=== PATIENT | female | born 1970 | race Two or more races ===

== ENCOUNTER 2017-05-05 13:51 | Emergency (ER) | payer OTHER ==
[~2017-05-05] VITALS: Ht 165.1 cm; Wt 65.8 kg
[2017-05-05] MEDS ORDERED: VENTOLIN HFA18 GM (14:05)
== END 2017-05-05 18:51 | disposition home or self-care (01) ==
LOC: ER 13:51
DX: J06.9 Acute upper respiratory infection, unspecified (principal); J11.1 Influenza due to unidentified influenza virus with other respiratory manifestations